=== PATIENT | female | born 1965 | race Caucasian/White ===

== ENCOUNTER → 2019-05-27 | Day surgery (SDC) | payer BC ==
[~2019-05-27] MED LIST: COLACE100 MG/10 PO; COLLAGEN HYDROLY1 GM PO; DICYCLOMINE HCL10 MG PO; FENTANYL CITRATE/PF 100MCG/2 ML INJ ONE; LIDOCAINE HCL 2% LOCAL INJ 5 ML SDV VIAL INJ ONE; MAG-OXIDE400 MG PO; MIDAZOLAM HCL 2 MG/2 ML VIAL ONE; MULTI-VITAMIN1 EACH PO; PROPOFOL IV EMULSION 10 MG/ML 20 ML VIAL ONE; TAMOXIFEN CITRA10 MG PO; [UNRECOGNIZED DRUG - OTHER] PO
[2019-05-27 13:10] VITALS: BP 123/77
--- NOTE | 2019-05-27 18:42 | Operative Report ---
DATE OF PROCEDURE: 05/27/2019 SURGEON: Sohan Garcia MD PROCEDURE PERFORMED: Colonoscopy. PREOPERATIVE DIAGNOSIS: History of colon polyps. POSTOPERATIVE DIAGNOSIS: One polyp found in the rectum. PREOPERATIVE MEDICATIONS: Consisted of IV sedation and MAC anesthesia. DESCRIPTION OF PROCEDURE: Using an [employer] video colonoscope was inserted into the patient's rectum and advanced without difficulty to the level of the cecum. The colon was studied from that level back down to the rectum. Only one small 2 mm size polyp was present in the rectum and this was removed with cold biopsy forceps. The colonoscope was withdrawn from the patient's rectum and the procedure was ended. Sohan Garcia MD SAF/MODL /[id number]
== END | disposition home or self-care (01) ==
LOC: OR 09:31
PROVIDERS: ATTEND Internal Medicine Gastroenterology
DX: Z09 Encounter for follow-up examination after completed treatment for conditions other than malignant neoplasm (principal); Z86.010 Personal history of colon polyps; K62.1 Rectal polyp; K58.9 Irritable bowel syndrome, unspecified; R00.1 Bradycardia, unspecified; Z85.3 Personal history of malignant neoplasm of breast; Z92.3 Personal history of irradiation
CPT/HCPCS: 45380; 93005; J2001; J2250; J2704; J3010; 45378

== ENCOUNTER 2020-01-13 09:20 | Emergency (ER) | payer BC, OTHER ==
[~2020-01-13] VITALS: Ht 167.6 cm; Wt 63.5 kg
[~2020-01-13 09:20] MED LIST changes: -FENTANYL CITRATE/PF 100MCG/2 ML INJ ONE; -LIDOCAINE HCL 2% LOCAL INJ 5 ML SDV VIAL INJ ONE; -MIDAZOLAM HCL 2 MG/2 ML VIAL ONE; -PROPOFOL IV EMULSION 10 MG/ML 20 ML VIAL ONE
--- NOTE | 2020-01-13 09:30 | Emergency Department Note ---
History of Present Illnes History of Present Illness Chief Complaint: General Medicine Complaints History of Present Illness This is a 54 year old female c/o holding left side of neck stating she has had "throbbing" since last night. Pt states describes as sharp to dull intermittent feeling. Pt aaox4, ambulatory. Non smoker. Pt states she's worried. Pt denies any dizziness, no headaches, no syncopal episodes, no other symptoms. Pt with hx of recent breast cancer with radiation last year in August and July. Pt states stage one, states only lump removed . Arrival Mode: Car Government Guard Required: No Onset (how long ago): day(s) Radiation: Reports non-radiation Severity: moderate Onset quality: gradual Duration (how long): day(s) Timing of current episode: intermittent Progression: waxing and waning Chronicity: new Relieving factors: none Exacerbating factors: none Associated symptoms: Reports denies other symptoms Treatments prior to arrival: none Past Medical/Family History Physician Review I have reviewed the patient's past medical and family history. Any updates have been documented here. Past Medical History Recent Fever: No Clinical Suspicion of Infectio: No New/Unexplained Change in Ment: No Past Medical History: Cancer Past Surgical History: Hysterectomy Social History Smoking Cessation: Unknown if ever smoked Counseling Performed: No Any Illegal Drug Use: No TB Exposure/Symptoms: No Physically hurt or threatened: No Family History Family history of heart diseas: No Other Last Tetanus: unk Any Pre-Existing Lines (PICC,: No Review of Systems Review of Systems Constitutional: Reports no symptoms EENTM: Reports as per HPI Cardiovascular: Reports no symptoms Respiratory: Reports no symptoms Gastrointestinal: Reports no symptoms Genitourinary: Reports no symptoms Musculoskeletal: Reports no symptoms Integumentary: Reports no symptoms Neurological: Reports no symptoms Psychological: Reports no symptoms Endocrine: Reports no symptoms Hematological/Lymphatic: Reports no symptoms Physical Exam Related Data Allergies: Coded Allergies: No Known Allergies (Unverified , 05/29/13) Vital signs reviewed: Yes Physical Exam CONSTITUTIONAL Constitutional: Present well-developed, Present well-nourished HENT HENT: Present normocephalic, Present atraumatic, Present oropharynx clear/moist, Present nose normal HENT L/R: Present left ext ear normal, Present right ext ear normal EYES Eyes: Reports PERRL, Reports conjunctivae normal NECK Neck: Present ROM normal, Present cervical adenopathy (small 1 cm node, left lateral) PULMONARY Pulmonary: Present effort normal, Present breath sounds normal CARDIOVASCULAR Cardiovascular: Present regular rhythm, Present heart sounds normal, Present capillary refill normal, Present normal rate GASTROINTESTINAL Abdominal: Present soft, Present nontender, Present bowel sounds normal GENITOURINARY Genitourinary: Present exam deferred SKIN Skin: Present warm, Present dry MUSCULOSKELETAL Musculoskeletal: Present ROM normal NEUROLOGICAL Neurological: Present alert, Present oriented x 3, Present no gross motor or sensory deficits PSYCHOLOGICAL Psychological: Present mood/affect normal, Present judgement normal Results Laboratory Lab results reviewed: Yes Laboratory comments CBC wnl, DDIMER wnl, doubt blood clots Imaging Imaging results reviewed: Yes Imaging Comments doppler: no acute Procedures 12 Lead ECG Interpretation ECG Interpretation : ECG: ECG 1 Government Guard: Interpreted by ED physician Date: Jan 13, 2020 Time: 09:54 Rhythm: sinus bradycardia Rate: bradycardia BPM: 57 QRS axis: normal ST segments normal: Yes T waves normal: Yes Clinical Impression: abnormal ECG Assessment & Plan Medical Decision Making MDM palpitations Reassessment Reassessment time: 11:57 Reassessment case discussed with pt and on the bed side Assessment & Plan Final Impression: (1) Cervical lymphadenopathy (2) Neck pain Depart Disposition: HOME, SELF-prison Meds Reported Medications Multivitamin (MULTI-VITAMIN DAILY) 1 Each Tablet, 1 TAB PO DAILY 05/27/19 Tamoxifen Citrate (TAMOXIFEN CITRATE) 10 Mg Tablet, 10 MG PO DAILY, #30 TAB 05/27/19 Discontinued Reported Medications Collagen, Hydrolysate (Bovine) (COLLAGEN HYDROLYSATE) 1 Gm Powder, 1 DOSE PO DAILY 05/27/19 Dicyclomine Hcl (DICYCLOMINE HCL) 10 Mg Capsule, 10 MG PO TID PRN for ABDOMINAL PAIN 05/27/19 Physician Attestation Provider Attestation small lymph node, not enough to do biopsy yet, expected management and f/u CALI HERNANDEZ MD Jan 13, 2020 09:30
--- NOTE | 2020-01-13 09:49 | NUR ---
[facility] PEOPLE CALLED TO SAY THEY ARE BUSY WITH ANOTHER PT AND THEY CANNOT CALL THE TECH UNTIL SHE IS DONE, AND THEN WILL HAVE HER CALL US WITH AN ETA. NOTIFIED.
--- NOTE | 2020-01-13 10:15 | NUR ---
[facility] CALLED, ON THEIR WAY, HERE IN 30 TO 45 MINS.
--- OUTSIDE RECORDS SUMMARY | 2020-01-13 10:25 | XMS REPORT | Continuity of Care Document ---
Author Author 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 Name Role Phone Edwin ROBBINS, Ana María PCP MEHRAN GARCIAS Attphys Unavailable MEHRAN GARCIAS Admphys Unavailable Payers Payer Name Policy Type Policy Number Effective Date Expiration Date S ource Problems Condition Name Condition Details Condition Category Status Onset Date Resolution Date Last Treatment Date Treating Clinician Comments Source Breast cancer, left Breast cancer, left Disease Active 2018-05-01 00:00 :00 [facility] Gisela ast Fibrocystic Disease Active 07/24/2013 [facility] Problem Active 2013-07-24 14:38: 53 Victor M Veliz 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 Active 07/24/2013 [facility] Problem Active 2013-07-24 14:38:55 M joce Veliz Nipple Discharge Bilateral Nip ple Discharge Bilateral Active 07/24/2013 [facility] Problem Active 2013-07-24 14:38: 53 Victor M Veliz Onychomycosis Onyc homycosis Active 07/24/2013 [facility] Problem Active 2013-07-24 14:38:55 M joce Veliz Allergies, Adverse Reactions, Alerts Allergy Name Allergy Type Status Severity Reaction(s) Onset Date Inacti ve Date Treating Clinician Comments Source No Known Allergies DA Active U 2018-12-17 00:00:00 [facility] No Known Drug Intolerances DA Active U 2001-08-09 00:00:0 0 [facility] No Known Contrast Allergies DA Active U 2001-08-09 00:00: 00 [facility] No Known Drug Allergies DA Active U 2001-08-09 00:00:00 [facility] No Known Food Allergies DA Active U 2001-08-09 00:00:00 [facility] No Known Other Allergies DA Active U 2001-08-09 00:00:00 [facility] No Known Drug Allergies No Known Drug Allergies Active Victor M Veliz Family History Family Member Diagnosis Comments Start Date Stop Date Source Unknown Family Member Family History 2012-12-26 02:46:06 2 02:46:06 Victor M Veliz Social History Social Habit Start Date Stop Date Quantity Comments Source Sex Assigned At [facility] Tobacco use and exposure 2018-05-01 00:00:00 2018-05-01 00:00:00 Diana palacios used [facility] Alcohol intake 2018-05-01 00:00:00 2018-05-01 00:00:00 Current drinker of alcohol (finding) [facility] Social History 2013-07-24 14:38:55 2013-07-24 14:38:55 Victor M Veliz Smoking Status Start Date Stop Date Source Never smoker [facility] Medications Ordered Medication Name Filled Medication Name Start Date Stop Da te Current Medication? Ordering Clinician Indication Dosage Frequency Signature (SIG) Comments Components Source Zovia 1/35E (28) 1-35 MG-MCG Oral Tablet 2013-07-24 14:38:55 Yes (Active) Victor M Veliz ValACYclovir HCl 500 MG Oral Tablet 2012-12-25 05:00:00 Yes ; Start Date: 12/25/2012; End Date: (Active) Victor M Veliz Terbinafine HCl 250 MG Oral Tablet 2012-12-25 05:00:00 Yes ; Start Date: 12/25/2012 (Active) Victor M Mann nn Clotrimazole-Betamethasone 1-0.05 % External Cream 2012-12 05:00:00 Yes ; Start Date: 12/25/2012 (Active) Victor M Veliz Levocetirizine Dihydrochloride 5 MG Oral Tablet 2012-12-25 05:00 :00 Yes ; Start Date: 12/25/2012 (Active) Victor M Veliz Zovia 135E (28) 1-35 MG-MCG Oral Tablet Yes ; Start Date: ; End Date: (Active) [facility] [address] Alfredo Procedures This patient has no known procedures. Plan of Care Planned Activity Planned Date Details Comments Source Future Scheduled Test 2013-05-02 04:01:00 Plan of Care [code = 1877 6-5] [facility] Future Scheduled Test 2013-04-12 21:32:54 Plan of Care [code = 1877 6-5] [facility] Future Scheduled Test 2012-12-26 02:46:06 Plan of Care [code = 1877 6-5] [facility] Encounters Start Date/Time End Date/Time Encounter Type Admission Type [facility] Care Department Encounter ID Source 2013-07-24 09:38:55 2013-07-24 09:38:55 Outpatient [facility] [id number] 2013-05-01 22:01:01 2013-05-01 22:01:00 [id number] 2013-04-12 15:32:54 2013-04-12 15:32:54 Outpatient [facility] [id number] 2012-12-25 21:46:06 2012-12-25 21:46:06 Outpatient [facility] [id number] Results Test Description Test Time Test Comments Results Result Comments Source BREAST ULTRASOUND BILATERAL 2019-09-02 12:58:54 - DIAG MAMM BILATERAL NOAM CAD DIGITALBILATERAL DIGITAL DIAGNOSTIC MAMMOGRAM 3D/2D WITH CAD: 09/02/2019CLINICAL: Previous breast cancer. Digital breast tomosynthesis was performed in addition to routine CC and MLO views. Current mammographic images were evaluated by either a [employer] M-Vu or a [employer] ImageChecker CAD (computer aided detection system). Comparison is made to exams dated 06/30/2015 mamm ogram, 05/05/2014 mammogram, and 04/15/2013 mammogram - [facility] There are scattered fibroglandular tissues in both breasts. There are post operative findings and biopsy clips in the left breast. Bilateral breast implants are intact. No suspicious mass, architectural distortion, malignant type calcification, or lymph node abnormality detected. INCOMPLETE: ADDITIONAL IMAGING EVALUATION NEEDEDBilateral ultrasound pending for additional evaluation. - BREAST ULTRASOUND BILATERALULTRASOUND OF BOTH BREASTS AND BOTH AXILLA: 09/02/2019Comparison is made to exams dated 06/30/2015 mammogram, 05/05/2014 mammogram, and 04/15/2013 [facility]. Real-time ultrasound of both breasts and both axilla and clinical breast exam were performed. No abnormalities were seen sonographically in either breast or either axilla. Bilateral implants are intact. Clinical breast exam was unremarkable. IMPRESSION: BENIGN - FOLLOW-UP RECOMMENDEDThere is no sonographic evidence of malignancy. A follow-up mammogram and an ultrasound in 6 months is recommended to demonstrate stability. Karime Hinson M.D. 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 Digital breast tomosynthesis was performed in addition to routine CC and MLO views. Current mammographic images were evaluated by either a [employer] in [employer] M-Vu or a [employer] ImageChecker CAD (computer aided detection system). Comparison is made to exams dated 06/30/2015 mamm ogram, 05/05/2014 mammogram, and 04/15/2013 [facility]. There are scattered fibroglandular tissues in both breasts. There are post operative findings and biopsy clips in the left breast. Bilateral breast implants are intact. No suspicious mass, architectural distortion, malignant type calcification, or lymph node abnormality detected. INCOMPLETE: ADDITIONAL IMAGING EVALUATION NEEDEDBilateral ultrasound pending for additional evaluation. - BREAST ULTRASOUND BILATERALULTRASOUND OF BOTH BREASTS AND BOTH AXILLA: 09/02/2019Comparison is made to exams dated 06/30/2015 mammogram, 05/05/2014 mammogram, and 04/15/2013 mammogram - [facility] Real-time ultrasound of both breasts and both axilla and clinical breast exam were performed. No abnormalities were seen sonographically in either breast or either axilla. Bilateral implants are intact. Clinical breast exam was unremarkable. IMPRESSION: BENIGN - FOLLOW-UP RECOMMENDEDThere is no sonographic evidence of malignancy. A follow-up mammogram and an ultrasound in 6 months is recommended to demonstrate stability. Karime Hinson M.D. dm/:09/02/2019 12:58:54 Molybdenum Steamer Operator: Risa Maria , [facility]- letter sent: BIRADS 1-2 Combo FU Letter Mammogram BI-RADS: 0 Incomplete: Additional Imaging Evaluation Needed Ultrasound BI-RADS: 2 Benign - XR ELBOW 3 + V RT 2019-08-20 15:36:00 FAX: Josh Carpenter MD [phone] [place]: St: REG FAX: Bladimir Lopez MD [phone] Name: BRITTNI NEWSOME [facility] [place] : 1965 Age/S: 54/F [address] Unit #: [id number] Loc: [place] [address] Phys: Bladimir Oakley MD Acct: [id number] Dis Date: Status: REG RCR PHONE #: [phone] Exam Date: 08/20/2019 1431 FAX #: Reason: RIGHT ELBOW PAIN EXAMS: CPT CODE: [id number] XR ELBOW 3 + V RT [id number] HISTORY: Right elbow pain. COMPARISON: None available. Location: [facility]. 3 views of the right elbow: No acute fracture or dislocation. Elbow joint is preserved. No elbow joint fluid is noted. Mineralization and soft tissues are normal. IMPRESSION: No acute fracture or dislocation or joint fluid. Articular surfaces appear well are generated. at 1536 Reported and signed by: Soren Kwon M.D. CC: Josh Gonzales; Bladimir Oakley MD Technologist: LULI Goel) Trnscrd Date/Time/By: 08/20/2019 (1536) : By: [email or web address] Orig Print D/T: S: 08/20/2019 (5337) PAGE 1 Signed Report SURGICAL SPECIMENS 2018-12-23 10:43:00 RUN DATE: 12/23/18 [facility] *LIVE* PAGE 1 RUN TIME: 1043 Specimen Inquiry RUN USER: INTERFACE PATIENT: BRITTNI NEWSOME [facility] #: [id number] AGE/SX: 53/F ROOM: RE12/18/18REG DR: Kacy Ohara MD : 61 BED: DIS: STATUS: [facility] TLOC: SPEC #: [id number] RECD: 12/18/18 STATUS: PELON CARTER #: [id number] PAN: 12/18/[address]: Kacy Ohara MD ENTERED: 12/20/18 SP TYPE: SURG SPEC OTHR DR: ORDERED: GM LEVEL 4 CODES: [id number] - UTERUS, NOS [id number] - PELVIS, NOS PROCEDURES: GM LEVEL 4 (Incomplete) TISSUES: 1. PELVIS, NOS - Pelvis, washing 2. UTERUS, NOS - Uterus, cervix, bilateral tubes and ovar FINAL DIAGNOSIS Pelvic, washing: No cells diagnostic of malignancy. Uterus, cervix, bilateral tubes and ovaries, exc.: Endometrium with secretory changes and tubal metaplasia; cervix with nabothian cysts, chronic cervicitis and squamous metaplasia; leiomyoma and fibrous adhesions; bilateral fallopian tubes with acute salpingitis; left ovary with corpora albicantia; right ovary with hemorrhagic corpus luteum cyst. GROSS AND MICROSCOPIC FROZEN SECTION DIAGNOSIS (DR): Endometrium: No malignancy identified; right ovary: Hemorrhagic corpus luteum cyst. GROSS DESCRIPTION: Received are 60 cc of pelvic washings for cytologic evaluation. Received fresh labeled uterus, cervix, bilateral tubes and ovaries, frozen on endometrium and right adnexa is a 248 g a 12 x 7 x 4 cm uterus with a 3.2 cm in diameter cervix with pink-oates ectocervix and 1 cm cervical os. The right fallopian tube measures 8 cm in length 0.7 cm in diameter, the right ovary measures 4.5 cm greatest dimension and is partially cystic. The cyst is filled with light brown serous fluid. The left fallopian tube measures 7 cm in length 0.7 cm in diameter. The left ovary measures 3.1 cm in greatest dimension is white-oates and cerebriform. The endometrium measures up to 0.6 cm is oates and lush. The myometrium measures up to 2.5 cm and contains white whirled nodules measure up to 0.9 cm. Sections are submitted for frozen section (A)-(B) endometrium and myometrium, (C) right ovary. Additional tissue submitted for permanent sections (D)-(E) cervix, (F)-(K) corpus uteri, (L) left adnexa, (M)-(P) right adnexa. MICROSCOPIC EXAMINATION: Cell block and cytospin smears of the pelvic CONTINUED ON NEXT PAGE RU N DATE: 12/23/18 [facility] *LIVE* PAGE 2 RUN TIME: 1043 Specimen Inquiry RUN USER: INTERFACE SPEC #: [id number] PATIENT: BRITTNI NEWSOME #[id number] (Continued) GROSS AND MICROSCOPIC (Continued) washings reveal mixed inflammation and mesothelial cells, no cells diagnostic of malignancy. Sections of the cervix show changes of squamous metaplasia with mild chronic inflammation and nabothian cysts. The endometrium shows secretory changes with coiled glands and decidualized stroma. There is some cystic dilation of the glands with tubal metaplasia. No definite malignancy is identified. The myometrium contains muscular lesions without significant nuclear atypia. The bilateral fallopian tubes show acute salpingitis. The left and right ovaries contain corpora albicantia. The right ovary contains a hemorrhagic corpus luteum cyst. POST-OP DIAGNOSIS Pelvic mass, thickened endometrium PRE-OP DIAGNOSIS Pelvic mass, thickened endometrium REVIEWED BY: MR Signed SIGNATURE ON FILE Alejandro Varela DO 12/23/18 1043 END OF REPORT - CTA CHEST FOR PE 2018-12-19 21:19:00 Name: BRITTNI BROWN [facility] : 1965 Age/S: 53 / F [address] [place] [address] Unit #: [id number] Loc: [place] [address] Phys: RodriguezAmbrosio Acct: [id number] Dis Date: Status: REG ER PHONE #: [phone] Exam Date: 12/19/20182044 FAX #: [phone] Reason: chest pain, elevated ddimer EXAMS: CPT CODE: [id number] [place] [id number] Clinical Indication: chest pain, elevated d-dimer; Comparison: None TECHNIQUE: Multi-detector CTA imaging of the chest is performed. Coronal and sagittal as well as 3D Maximum Intensity Projected MIP reconstructions were obtained. 100 cc IV Isovue contrast used. CT DLP 264mg-cm. FINDINGS: CT: There are no lung nodules, interstitial lung disease, or pneumothorax. A trace right pleural effusion is present. Atelectasis is seen at the lung bases. The central airway is normal. There is no mediastinal lymphadenopathy. Thoracic osseous structures and limited upper abdominal images are unremarkable. Bilateral breast implants are present. CTA: The heart is within normal limits for size without pericardial effusion. Pulmonary arteries are unremarkable w ithout evidence for proximal segmental or larger pulmonary embolus. The thoracic aorta is within normal limits without aneurysm or dissection. The great vessels and superior vena cava are normal. IMPRESSION: 1. No evidence for pulmonary embolus 2. Trace right pleural effusion. SL: LANVU-H at 2118 Reported and signed by: Elliott Otero M.D. PAGE 1 Signed Report (CONTINUED) Name: BRITTNI NEWSOME [facility] : 1965 Age/S: 53 / F [address] [place] [address] Unit #: [id number] Loc: [facility] [place] [id number] Phys: Ambrosio Rodriguez DO Acct: [id number] Dis Date: Status: REG ER PHONE #: [phone] Exam Date: 12/19/20182044 FAX #: [phone] Reason: chest pain, elevated ddimer EXAMS: CPT CODE: [id number] [id number] <Continued> CC: Ambrosio Rodriguez DO Technologist:Tasneem Ng, RT(R)(CT) CTDI: DLP: Trnscb Date/Time: 12/19/2018 (2118) [email or web address] Orig Print D/T: S: 12/19/2018 (2122) PAGE 2 Signed Report PROTHROMBIN TIME 2018-12-19 20:07:00 Test Item PROTHROMBIN TIME PATIENT (test code = PTP) 11.1 SECONDS 9.3-12.9 N INTERNATIONAL NORMAL RATIO (test code = INR) 1.0 0.8-1.2 N TARGET INR BY INDICATION Indication INR1. Prophylaxis of venous thrombosis 2.0 - 3.0 (orthopedic surgery), Prophylaxis of venous thrombosis (other than high-risk surgery), Treatment of Deep Vein Thrombosis/Pulmonary Embolism, Prevention of systemic embolism - Tissue heart valves, Acute Myocardial Infarction (to prevent systemic embolism), Valvular heart disease, Atrial Fibrillation, Bileaflet mechanical valve in aortic position.2. Mechanical prosthetic valves (high risk), 2.5 - 3.5 Presence of Lupus Anticoagulant or Antiphospholipid Antibodies, Prevention of systemic embolism - Acute Myocardial Infarction (to prevent recurrent infarct). THROMBOPLASTIN TIME [id number] 20:07:00* Test Item Value Reference Range Interpretation Comments THROMBOPLASTIN TIME PARTIAL (test code = PTT) 23.9 Seconds 25.0-39. 5 L Therapeutic Range: 50.4 - 88.3 Seconds Effective 07/17/2018 [id number] 20:07:00* Test Item Value Reference Range Interpretation Comments D-DIMER (test code = DDIMER) 1477 ng/mlFEU <=500 HH THROMBOSIS AND/OR PULMONARY EMBOLISM AND THE CLINICAL CUT- OFF VALUE FOR EXCLUSION (500 ng/mL FEU) OF THESE CONDITIONSIS VALIDATED BY THE ANIMAL PARK CODE ENFORCEMENT OFFICER OF THE METHOD. A NEGATIVE D-DIMER RESULT WHEN COMBINED WITH A CLINICALASSESSMENT OF LOW PRETEST PROBABILITY HAS BEEN SHOWN TO HAVEA HIGH NEGATIVE PREDICTIVE VALUE OF DVT OR PE. D-DIMER VALUES >500 ng/mL FEU ARE NOT DIAGNOSTIC FOR DVT, PEor DIC WITHOUT OTHER CONFIRMATORY TESTS AND APPROPRIATECLINICAL EUALUATIONS. HEPATIC FUNCTION [id number] 20:02:00* Test Item Value Reference Range Interpretation Comments TOTAL PROTEIN (test code = PROT) 6.1 g/dL 6.4-8.2 L ALBUMIN (test code = ALB) 3.20 g/dL 3.4-5.0 L BILIRUBIN TOTAL (test code = BILT) 0.3 MG/DL <1.5 N BILIRUBIN DIRECT (test code = BILD) < 0.10 MG/DL 0.0-0.30 N BILIRUBIN INDIRECT (test code = BILIND) 0.20 MG/DL SGOT/AST (test code = AST) 29 IUnit/L 15-37 N SGPT/ALT (test code = ALT) 30 IUnit/L 15-65 N ALKALINE PHOSPHATASE TOTAL (test code = ALKP) 37 IUnit/L 20-125 N [id number] 20:02:00* Test Item Value Reference Range Interpretation Comments LIPASE (test code = LIP) 159 IUnit/L 73-393 N [id number] 20:02:00* Test Item Value Reference Range Interpretation Comments MAGNESIUM (test code = MAG) 2.10 mg/dL 1.8-2.4 N - XR CHEST 2 [id number] 19:51:00 FAX: Ambrosio Rodriguez DO [phone] [place]: St: REG Name: BRITTNI BROWN [facility] : [birth year] Age/S: 53/F [address] [place] [address] Unit #: [id number] Loc: [address] [address] Phys: Ambrosio Rodriguez DO Acct: [id number] Dis Date: Status: REG ER PHONE #: [phone] Exam Date: 12/19/20181937 FAX #: [phone] Reason: Chest Pain EXAMS: CPT CODE: [id number] XR CHEST 2 V [id number] Clinical Indication: Chest Pain. Comparison: 12/17/2018 FINDINGS: The frontal and lateral chest radiographs show normal lung volumes. Subdiaphragmatic free air is seen bilaterally. Mild bilateral perihilar peribronchial infilt rates are present. No interstitial or airspace opacities are seen. No ple ural effusions are present. No pneumothorax is seen. The he art is normal in size. The trachea is midline. There are no clini richard significant osseous abnormalities noted. IMPRESSION: 1. Mild bilateral perihilar peribronchial infiltrates, likely viral in etiology. 2. Free air in the abdomen, consistent with the patient's h istory of hysterectomy yesterday. Recommend close interval follow-up wi th x-ray to resolution. SL: LANVU-H Elect ronically Signed by Nati Otero on 12/19/2018 at 1950 Reported and signed by: Elliott Otero M.D. CC: Ambrosio Rodriguez DO Technologist: RT Debra(Ricky) Trnscrd Date/Time/By: 12/19/2018 (1950) : By: Denisha ALANIZ Orig Print D/T: S: 12/19/2018 (1954) PAG E 1 Signed Report CBC W/AUTO [id number] 19:43:00* Test Item Value Reference Range Interpretation Comments WHITE BLOOD CELL (test code = WBC) 10.64 x10 3/uL 4.5-11.0 RED BLOOD CELL (test code = RBC) 3.84 x10 6/uL 3.54-5.02 N HEMOGLOBIN (test code = HGB) 11.8 g/dL 11.0-15.0 N HEMATOCRIT (test code = HCT) 36.5 % 33.0-45.0 N MEAN CELL VOLUME (test code = MCV) 95.1 fL 81.0-99.0 N MEAN CELL HGB (test code = MCH) 30.7 pg 27.0-33.0 N MEAN CELL HGB CONCETRATION (test code = MCHC) 32.3 g/dL 33.0-37. 0 L RED CELL DISTRIBUTION WIDTH CV (test code = RDW) 13.5 % 11.5- 14.5 N RED CELL DISTRIBUTION WIDTH SD (test code = RDW-SD) 46.6 fL 37 .0-54.0 N PLATELET COUNT (test code = PLT) 205 x10 3/uL 150-400 N MEAN PLATELET VOLUME (test code = MPV) 9.8 fL 7.0-9.0 H NEUTROPHIL % (test code = NT%) 84.3 % 56.0-77.0 H IMMATURE GRANULOCYTE % (test code = IG%) 0.4 % 0.0-2.0 N LYMPHOCYTE % (test code = LY%) 10.4 % 14.0-32.0 L MONOCYTE % (test code = MO%) 4.2 % 4.8-9.0 L EOSINOPHIL % (test code = EO%) 0.4 % 0.3-3.7 N BASOPHIL % (test code = BA%) 0.3 % 0.0-2.0 N NUCLEATED RBC % (test code = NRBC%) 0.0 % 0-0 N NEUTROPHIL # (test code = NT#) 8.97 x10 3/uL 2.0-7.6 H IMMATURE GRANULOCYTE # (test code = IG#) 0.04 x10 3/uL 0.00-0.03 H LYMPHOCYTE # (test code = LY#) 1.11 x10 3/uL 1.0-3.8 N MONOCYTE # (test code = MO#) 0.45 x10 3/uL 0.1-0.8 N EOSINOPHIL # (test code = EO#) 0.04 x10 3/uL 0.0-0.2 N BASOPHIL # (test code = BA#) 0.03 x10 3/uL 0.0-0.2 N NUCLEATED RBC # (test code = NRBC#) 0.00 x10 3/uL 0.0-0.1 N MANUAL DIFF REQUIRED (test code = MDIFF) NO TROPONIN-I [id number] 19:25:00* Test Item Value Reference Range Interpretation Comments TROPONIN-I RAPID (test code = TROPIRAP) 0.00 ng/mL 0.00-0.08 N Performed by certified nicking machine operator at [facility] Negative: <= 0.08 Positive: >= 0.09An elevated troponin value alone is not sufficient todiagnose a myocardial infarction. Rather, the patient sclinical presentation (history, physical exam) and ECGshould be used in conjunction with troponin in thediagnostic evaluation of suspected myocardial infarction. Aserial sampling protocol is recommended to facilitate the identification of temporal changes in troponin levels characteristic of [place]. CHEMISTRY 8 [id number] 19:19:00* Test Item Value Reference Range Interpretation Comments ISTAT-SODIUM (test code = NAP) MMOL/L 134-147 ISTAT-POTASSIUM (test code = KP) MMOL/L 3.4-5.0 ISTAT-CHLORIDE (test code = CLP) MMOL/L 100-108 ISTAT CARBON DIOXIDE (test code = ISTAT-CO2) mmol/L 21-33 N ISTAT CALCIUM IONIZED (test code = ISTAT-ALLI) MG/DL 1.12-1.3 2 ISTAT-GLUCOSE (test code = GLUP) MG/DL 70-110 N ISTAT-BUN (test code = BUNP) MG/DL 7-18 N BEDSIDE CREATININE (test code = CREATBED) MG/DL 0.6-1.3 N GLOMERULAR FILTRATION RATE POC (test code = GFRBED) 79 ML/MIN CHEMISTRY 8 [id number] 19:19:00* Test Item Value Reference Range Interpretation Comments ISTAT-SODIUM (test code = NAP) 139 MMOL/L 134-147 N ISTAT-POTASSIUM (test code = KP) 3.8 MMOL/L 3.4-5.0 N ISTAT-CHLORIDE (test code = CLP) 103 MMOL/L 100-108 N Performed by certified nicking machine operator at [facility] ISTAT CARBON DIOXIDE (test code = ISTAT-CO2) 26.0 mmol/L 21-33 N ISTAT CALCIUM IONIZED (test code = ISTAT-ALLI) 1.21 MG/DL 1.12-1.3 2 N ISTAT-GLUCOSE (test code = GLUP) 97 MG/DL 70-110 N ISTAT-BUN (test code = BUNP) 10 MG/DL 7-18 N BEDSIDE CREATININE (test code = CREATBED) 0.8 MG/DL 0.6-1.3 N GLOMERULAR FILTRATION RATE POC (test code = GFRBED) 79 ML/MIN BASIC METABOLIC [id number] 10:57:00* Test Item Value Reference Range Interpretation Comments SODIUM (test code = NA) 140 mEq/L 134-147 N POTASSIUM (test code = K) 3.9 mEq/L 3.4-5.0 N CHLORIDE (test code = CL) 108 mEq/L 100-108 N CARBON DIOXIDE (test code = CO2) 29 mEq/L 21-33 N ANION GAP (test code = GAP) 7 0-20 N GLUCOSE (test code = GLU) 128 mg/dL 70-110 H BLOOD UREA NITROGEN (test code = BUN) 12 mg/dL 7-18 N GLOMERULAR FILTRATION RATE (test code = GFR) 65.0 90-95 L Units of measure = ml/min/1.73 m2 CREATININE (test code = CREAT) 0.9 mg/dL 0.6-1.3 CALCIUM (test code = CA) 8.6 mg/dL 8.0-10.5 N - XR CHEST 2 [id number] 10:52:00 FAX: Kacy Fofana [phone] [place]: St: PRE Name: BRITTNI BROWN [facility] : [birth year] Age/S: 53/F [address] [place] [address] Unit #: [id number] Loc: [place] [address] Phys: Kacy Ohara MD Acct: [id number] Dis Date: Status: PRE SDC PHONE #: [phone] Exam Date: 12/17/2018 1053 FAX #: [phone] Reason: PRE-OP TLH EXAMS: CPT CODE: [id number] XR CHEST 2 V [id number] EXAM: PA and lateral chest. EXAM DATE: December 17, 2018 at 1034 hours CLINICAL HISTORY: PRE-OP TLH COMPARISON: None Surgical clips overlie the left anterior chest. Cardiomediastinal silhouette is within normal limits. The lungs appear free of acute disease. Osseous structures demonstrate no acute abnormalities. IMPRESSION: No evidence of acute cardiopulmonary disease. at 1052 Reported and signed by: Madeline Ryder M.D. CC: Kacy Ohara MD Technologist: RT Alex(Ricky)(M) Trnscrd Darrin e/Time/By: 12/17/2018 (3746) : By: Negrita Orig Print D/T: S: 2018 (8885) PAGE 1 Signed Report BASIC METABOLIC [id number] 10:41:00* Test Item Value Reference Range Interpretation Comments SODIUM (test code = NA) 138 mEq/L 134-147 N POTASSIUM (test code = K) 3.8 mEq/L 3.4-5.0 N CHLORIDE (test code = CL) 107 mEq/L 100-108 N CARBON DIOXIDE (test code = CO2) 28 mEq/L 21-33 N ANION GAP (test code = GAP) 7 0-20 N GLUCOSE (test code = GLU) 78 mg/dL 70-110 N BLOOD UREA NITROGEN (test code = BUN) 12 mg/dL 7-18 N GLOMERULAR FILTRATION RATE (test code = GFR) 86.9 90-95 L Units of measure = ml/min/1.73 m2 CREATININE (test code = CREAT) 0.7 mg/dL 0.6-1.3 N CALCIUM (test code = CA) 8.9 mg/dL 8.0-10.5 N HCG SERUM [id number] 10:41:00* Test Item Value Reference Range Interpretation Comments HCG SERUM QUAL (test code = HCGQL) SERUM NEGATIVE NEGATIVE BASIC METABOLIC [id number] 10:38:00* Test Item Value Reference Range Interpretation Comments SODIUM (test code = NA) 138 mEq/L 134-147 N POTASSIUM (test code = K) 3.8 mEq/L 3.4-5.0 N CHLORIDE (test code = CL) 107 mEq/L 100-108 N CARBON DIOXIDE (test code = CO2) 28 mEq/L 21-33 N ANION GAP (test code = GAP) 7 0-20 N GLUCOSE (test code = GLU) 78 mg/dL 70-110 N BLOOD UREA NITROGEN (test code = BUN) 12 mg/dL 7-18 N GLOMERULAR FILTRATION RATE (test code = GFR) 90-95 CREATININE (test code = CREAT) mg/dL 0.6-1.3 CALCIUM (test code = CA) 8.9 mg/dL 8.0-10.5 N HCG SERUM [id number] 10:38:00* Test Item Value Reference Range Interpretation Comments [facility] SERUM QUAL (test code = HCGQL) NEGATIVE PROTHROMBIN [id number] 10:38:00* Test Item Value Reference Range Interpretation Comments PROTHROMBIN TIME PATIENT (test code = PTP) 10.9 SECONDS 9.3-12.9 N INTERNATIONAL NORMAL RATIO (test code = INR) 1.0 0.8-1.2 N TARGET INR BY INDICATION Indication INR1. Prophylaxis of venous thrombosis 2.0 - 3.0 (orthopedic surgery), Prophylaxis of venous thrombosis (other than high-risk surgery), Treatment of Deep Vein Thrombosis/Pulmonary Embolism, Prevention of systemic embolism - Tissue heart valves, Acute Myocardial Infarction (to prevent systemic embolism), Valvular heart disease, Atrial Fibrillation, Bileaflet mechanical valve in aortic position.2. Mechanical prosthetic valves (high risk), 2.5 - 3.5 Presence of Lupus Anticoagulant or Antiphospholipid Antibodies, Prevention of systemic embolism - Acute Myocardial Infarction (to prevent recurrent infarct). THROMBOPLASTIN TIME [id number] 10:38:00* Test Item Value Reference Range Interpretation Comments THROMBOPLASTIN TIME PARTIAL (test code = PTT) 28.2 Seconds 25.0-39. 5 N Therapeutic Range: 50.4 - 88.3 Seconds Effective 07/17/2018 BASIC METABOLIC [id number] 10:38:00* Test Item Value Reference Range Interpretation Comments SODIUM (test code = NA) 138 mEq/L 134-147 N POTASSIUM (test code = K) 3.8 mEq/L 3.4-5.0 N CHLORIDE (test code = CL) 107 mEq/L 100-108 N CARBON DIOXIDE (test code = CO2) 28 mEq/L 21-33 N ANION GAP (test code = GAP) 7 0-20 N GLUCOSE (test code = GLU) 78 mg/dL 70-110 N BLOOD UREA NITROGEN (test code = BUN) 12 mg/dL 7-18 N GLOMERULAR FILTRATION RATE (test code = GFR) 90-95 CREATININE (test code = CREAT) mg/dL 0.6-1.3 CALCIUM (test code = CA) 8.9 mg/dL 8.0-10.5 N HCG SERUM [id number] 10:38:00* Test Item Value Reference Range Interpretation Comments HCG SERUM QUAL (test code = HCGQL) SERUM NEGATIVE NEGATIVE CBC W/AUTO [id number] 10:27:00* Test Item Value Reference Range Interpretation Comments WHITE BLOOD CELL (test code = WBC) 5.11 x10 3/uL 4.5-11.0 N RED BLOOD CELL (test code = RBC) 4.54 x10 6/uL 3.54-5.02 N HEMOGLOBIN (test code = HGB) 13.9 g/dL 11.0-15.0 N HEMATOCRIT (test code = HCT) 43.2 % 33.0-45.0 N MEAN CELL VOLUME (test code = MCV) 95.2 fL 81.0-99.0 N MEAN CELL HGB (test code = MCH) 30.6 pg 27.0-33.0 N MEAN CELL HGB CONCETRATION (test code = MCHC) 32.2 g/dL 33.0-37. 0 L RED CELL DISTRIBUTION WIDTH CV (test code = RDW) 13.1 % 11.5- 14.5 N RED CELL DISTRIBUTION WIDTH SD (test code = RDW-SD) 46.4 fL 37 .0-54.0 N PLATELET COUNT (test code = PLT) 248 x10 3/uL 150-400 N MEAN PLATELET VOLUME (test code = MPV) 9.5 fL 7.0-9.0 H NEUTROPHIL % (test code = NT%) 73.1 % 56.0-77.0 N IMMATURE GRANULOCYTE % (test code = IG%) 0.6 % 0.0-2.0 N LYMPHOCYTE % (test code = LY%) 18.2 % 14.0-32.0 N MONOCYTE % (test code = MO%) 6.5 % 4.8-9.0 N EOSINOPHIL % (test code = EO%) 1.0 % 0.3-3.7 N BASOPHIL % (test code = BA%) 0.6 % 0.0-2.0 N NUCLEATED RBC % (test code = NRBC%) 0.0 % 0-0 N NEUTROPHIL # (test code = NT#) 3.74 x10 3/uL 2.0-7.6 N IMMATURE GRANULOCYTE # (test code = IG#) 0.03 x10 3/uL 0.00-0.03 N LYMPHOCYTE # (test code = LY#) 0.93 x10 3/uL 1.0-3.8 L MONOCYTE # (test code = MO#) 0.33 x10 3/uL 0.1-0.8 N EOSINOPHIL # (test code = EO#) 0.05 x10 3/uL 0.0-0.2 N BASOPHIL # (test code = BA#) 0.03 x10 3/uL 0.0-0.2 N NUCLEATED RBC # (test code = NRBC#) 0.00 x10 3/uL 0.0-0.1 N MANUAL DIFF REQUIRED (test code = MDIFF) NO TISSUE [id number] 12:39:00Surgical Pathology Report Case: [id number] Authorizing Provider: Franky Garcias MD Collected: 05/01/2018 1101 Ordering Location: [facility] [place] [facility] Received: 05/01/2018 1318 SERVICES Pathologist: Km Reno MD Specimens: A) - Lymph Node, [place], Left Axilla B) - Breast, Left, LEFT BREAST LUMPECTOMY, short stitch superior, long stitch lateralREASON FOR ADDENDUM: TO REPORT ONCOTYPE DX RESULT.PERFORMED ON [id number] DX RECURRENCE SCORE RESULT : 13DISTANT RECURRENCE RISK AT 9 YRS (WITH AI OR ALVARENGA ALONE) : 4%ABSOLUTE CHEMOTHERAPY BENEFIT : <1%See scanned Oncotype DX result reportAddendum electronically signed by Antonella Reno MD on 05/21/2018 at 12:39 PMA. LYMPH NODE, LEFT SENTINEL, BIOPS Y - THREE LYMPH NODES, NEGATIVE FOR CARCINOMA (0/3)B. 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 - GREATEST MICROSCOPIC MEASUREMENT : 16MM - HISTOLOGIC GR JL : 2/3 (3 + 2 + 2) BY ESBR CRITERIA - MITOTIC COUNT : 10 M ITOSIS PER 10 HPF'S - FOCUS SUSPICIOUS FOR LYMPHATIC INVASION - MILD TUMOR INFILTRATING LYMPHOCYTES - S URGICAL MARGINS : NEGATIVE - CLOSEST DEEP : 3MM - SUPERIOR : 5MM - ALL OT HER MARGINS > 10MM - DUCTAL CARCINOMA IN SITU, NON-EXTENSIVE - GREATEST MICROSCOPIC MEASUREMENT : 5MM - OF LARGEST FOCUS - NUCLEAR GRADE : 2/3 BY SBR CRITERIA - GROWTH PATTERN : SOLID, FOCALLY CRIBRIFORM - ASSOCIATED WITH FOCAL CENTRAL NECROSIS - ASSOCIATED WITH FOCAL CALCIFICATIONS - SURGICAL MARGINS : NEGATIVE - DEEP / SUPERIOR : 7MM - ALL OTHER MARGINS > 10MM - INTRADUCTAL PAPILLOMA - ASSOCIATED WITH FOCAL CALCIFICATIONS - COLUMNAR CELL CHANGES AND HYPERPLASIA - USUAL DUCTAL HYPERPLASIA - SCLEROSING ADENOSIS - BENIGN BREAST TISSUE ASSOCIATED WITH CALCIFICATIONS Signing Pathologist Direct Phone Line: [phone] signed by Km Reno MD on 05/04/2018 at 2:22 PMTUMOR STAGING (PATHOLOGY) Anatomic site of tumor : left breastHistologic type : Infiltrating ductal carcinoma, no special typeHistologic grade : G2, moderately differentiatedTumor size : 16mmPrimary tumor (T) : pT1c Lymph node (N) : [id number] grouping : IAMargins : NegativeLYMPH NODE SUMMARYTotal # of sentinel lymph nodes : 3Total # of non- sentinel lymph nodes : 0Total # of positive sentinel lymph nodes : 0INVASIVE CARCINOMA OF THE BREAST (Breast Invasive - All Specimens)SPECIMEN Procedure: Excision (less than total mastectomy) Specimen Laterality: Left TUMOR Histologic Type: Invasive carcinoma of no special type (ductal, not otherwise specified) Glandular (Acinar) / Tubular Differentiation: Score 3 Nuclear Pleomorphism: Score 2 Mitotic Rate: Score 2 (4-7 mitoses per mm2) Overall Grade: Grade 2 (scores of 6 or 7) Tumor Size: Greatest dimension of largest invasive focus in Millimeters (mm): 16 Millimeters (mm) Tumor Focality: Single focus of invasive carcinoma Ductal Carcinoma In Situ (DCIS): Present : Negative for extensive intraductal component (EIC) Size (Extent) of DCIS: Estimated size of DCIS greatest dimension in Millimeters (mm) is at least: 5 Millimeters (mm) Architectural Patterns: Cribriform Architectural Patterns: Solid Nuclear Grade: Grade II (intermediate) Necrosis: Present, central (expansive "comedo" necrosis) Lobular Carcinoma In Situ (LCIS): No LCIS in specimen Tumor Extent: Accessory Findings: Lymphovascular Invasion: Present Dermal Lymphovascular Invasion: No skin present Microcalcifications: Present in DCIS Microcalcifications: Present in non-neoplastic tissue Treatment Effect: No known presurgical therapy MARGINS Invasive Carcinoma Margins: Uninvolved by invasive carcinoma Distance from Clos est Margin in Millimeters (mm): 3 Millimeters (mm) Closest Margin: Pos terior DCIS Margins: Uninvolved by DCIS Distance of DCIS from Closest Margin in Millimeters (mm): 7 Millimeters (mm) Closest Margin: Stamp Maker ior Closest Margin: Superior LYMPH NODES Regional Lymph Nodes: Unin volved by tumor cells Number of Lymph Nodes Examined: 3 Number of S entinel Nodes Examined: 3 PATHOLOGIC STAGE CLASSIFICATION (pTNM, AJCC 8th Joel tion) TNM Descriptors: Not applicable Primary Tumor (Invasive Carcinoma) (pT): pT1c Regional Lymph Nodes (pN): Modifier: (sn): Only sen tinel node(s) evaluated. Category (pN): pN0 A. 24047 x 1B. 60582 x 1Mali gnant neoplasm of left breast. Estrogen receptor positiveA. Left axilla, sentine l lymph node; B. Left breast lumpectomyThe specimens are received in two contain ers of formalin both labeled with the patient's information. Part A labeled "lef t sentinel axilla lymph node" consists of adipose tissue measuring 2 x 2 x 1 cm in aggregate yielding three lymph nodes, two are blue-green, measuring 0.5 and 1 .5 cm and one oates-pink measuring 1 cm in greatest dimension. Lymph nodes are ent irely submitted as follows: A1, larger lymph node bisected; A2, one lymph node b isected; A3, one lymph node bisected.Part B labeled "left breast lumpectomy" con sists of a 24 gm left breast lumpectomy measuring 3.5 cm superior to inferior x 4.5 cm medial to lateral x 2 cm superficial to deep. There are two black sutures designating short superior, long lateral. Ink code: superior blue, inferior red, lateral green, medial orange, anterior yellow and deep black. The specimen is serially sectioned from medial to lateral into seven slices. Slices 3 and 4 cont ain a white well-defined firm mass in slices 3 and 4 measuring 1.5 x 1.5 x 1.5 c m grossly at or near the superior deep margins, 1 cm from the inferior margin, 1 cm from the anterior margin. The specimen is faxitroned showing no clip present. The specimen is entirely submitted as follows: B1 and 2, slice 1, medial margin, perpendicular section; B3 to B5, slice 2; B6 through B9, slice 3; B10 to B12, slice 4. B13 to 15, slice 5; B16 and 17, slice 6; B18 and 19, slice 7, lateral margin. CG/pl A-B. Performed.[facility], Department of Pa thology, [address] [place] [address], [facility] [place] [address],
--- OUTSIDE RECORDS SUMMARY | 2020-01-13 10:25 | XMS REPORT | Clinical Summary ---
Author Author BETO [facility] Address Unknown Phone Unavailable Care Team Providers Care Surgical Instrument Maker Name Role Phone Ana María Pineda MD PCP Allergies No Known Allergies Medications No known medications Active Problems Problem Noted Date Breast cancer, left 05/01/2018 Social History Date Tobacco Use Types Packs/Day Years Used Never Smoker Smokeless Tobacco: Never Used Drinks/Week oz/Week Comments Alcohol Use 4 Glasses of wine 4.0 Yes Sex Assigned at Date Recorded Not on file Last Filed Vital Signs Not on file Plan of Treatment Not on file Results Not on fileafter 01/12/2019 Insurance Type Payer Benefit Subscriber ID Effective Phone Address Plan / Dates Group HMO/POS [facility] [facility] [id number] resent EXCHANGE [address] (Home) [place] [phone] Advance Directives For more information, please contact: [phone] Date Inactivated Comments Code Status Date Activated Full Code 05/01/2018 9:43 AM This code status was determined by: Patient
--- NOTE | 2020-01-13 12:14 | Diagnostic Imaging Report ---
Bilateral carotid Doppler ultrasound. History: Neck throbbing. Comparison: None available. Discussion: Grayscale, color Doppler, and spectral wave form analysis was performed of the bilateral carotid and vertebral arteries. The vessels are normal in appearance without evidence of intimal thickening or plaque. The flow velocities are within normal limits bilaterally. Right ICA peak systolic velocity is 62.7 cm/sec. ICA/CCA ratio is 0.95. Left ICA peak systolic velocity is 65.8 cm/sec. ICA/CCA ratio 0.73. The vertebral arteries are antegrade in flow bilaterally. IMPRESSION: No evidence of carotid plaque or stenosis. Signed by: Camron Robles on 01/13/2020 12:10 PM
== END 2020-01-13 12:14 | disposition home or self-care (01) ==
LOC: FSED 09:53
DX: R59.1 Generalized enlarged lymph nodes (principal); Z85.3 Personal history of malignant neoplasm of breast; Z92.3 Personal history of irradiation
CPT/HCPCS: 80053; 82553; 84484; 85025; 85379; 93005; 93880; 99284

== ENCOUNTER → 2023-05-04 | Outpatient (REF) | payer OTHER | LOC: NM 08:12 | PROVIDERS: ATTEND Internal Medicine Gastroenterology | DX: K31.84 Gastroparesis (principal) | CPT/HCPCS: 78264; A9541 ==